=== PATIENT | female | born 1995 | race Caucasian/White ===

== ENCOUNTER 2016-09-10 13:50 | Outpatient (RCR) | payer BC | END 2016-09-13 11:18 | disposition home or self-care (01) | PROVIDERS: ATTEND Family Medicine | DX: R51 Headache (principal); M54.2 Cervicalgia ==

== ENCOUNTER 2018-11-29 14:23 | Emergency (ER) | payer BC ==
[~2018-11-29] VITALS: Ht 170.2 cm; Wt 95.3 kg
--- OUTSIDE RECORDS SUMMARY | 2018-11-29 14:26 | XMS REPORT ---
Author Author Jessica Franklin Organization [employer] Address Unknown Phone Unavailable Care Team Providers Care Director Global Sales Name Role Phone Jessica Franklin CP Unavailable Allergies, Adverse Reactions, Alerts Substance Reaction Event Type N.K.D.A. 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 Problem Near syncope R55 Active Problem Dysmenorrhea, unspecified N94.6 Active Problem Cough R05 Active Problem Encounter for immunization Z23 Active Problem Encounter for routine child health examination without abnormal findings Z00.129 Active Medications Medication Code System Code Instructions Start Date End Date Status Dosage Loratadine NDC ____ not defined Flonase NDC ____ as directed Procedures Procedure Coding System Code Date DESTRUCT LESION, 14 CPT-4 40170 February 09, 2016 Office Visit, Est Pt., Level 4 CPT-4 04059 February 09, 2016 Vital Signs Date/Time: February 09, 2016 Blood Pressure Systolic 100 mm Hg Ht Percentile 85.70 % Cardiac Monitoring Heart Rate 77 /min Temperature 97.5 F BMI 22.80 Index Weight 145.6 lbs Height 5 ft 7 in in Blood Pressure Diastolic 80 mm Hg Wt Percentile 77.03 % Oximetry 98 % Results No Known Results Summary Purpose eClinicalWorks Submission
--- OUTSIDE RECORDS SUMMARY | 2018-11-29 14:26 | XMS REPORT ---
Author Author Jessica Franklin Organization [employer] Address Unknown Phone Unavailable Care Team Providers Care Risk Management Professional Name Role Phone Jessica Franklin CP Unavailable Allergies, Adverse Reactions, Alerts Substance Reaction Event Type N.K.D.A. 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 Problem Encounter for immunization Z23 Active Problem Concussion S06.0X9A Active Problem Cough R05 Active Assessment Concussion S06.0X9A Active Problem Encounter for routine child health examination without abnormal findings Z00.129 Active Problem Dysmenorrhea, unspecified N94.6 Active Medications Medication Code System Code Instructions Start Date End Date Status Dosage Loratadine [facility] [address]-74 not defined Minastrin 24 Fe [facility] 58035636003 0 orally daily as directed Procedures Procedure Coding System Code Date Office Visit, Est Pt., Level 4 CPT-4 53743 May 20, 2015 Vital Signs Date/Time: May 20, 2015 Blood Pressure Systolic 100 mm Hg Cardiac Monitoring Heart Rate 97 /min Temperature 98.2 F BMI 22.05 Index Weight 140.8 lbs Height 67 in Blood Pressure Diastolic 74 mm Hg Wt Percentile 74.31 % Oximetry 98 % Results No Known Results Summary Purpose eClinicalWorks Submission
--- OUTSIDE RECORDS SUMMARY | 2018-11-29 14:26 | XMS REPORT ---
Author Author Jessica Franklin Organization [employer] Address Unknown Phone Unavailable Care Team Providers Care Child Care Attendant Name Role Phone Jessica Franklin CP Unavailable Allergies, Adverse Reactions, Alerts Substance Reaction Event Type N.K.D.A. 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 Problem Encounter for immunization Z23 Active Problem Concussion S06.0X9A Active Problem Cough R05 Active Assessment Irregular menstrual cycle N92.6 Active Problem Encounter for routine child health examination without abnormal findings Z00.129 Active Problem Dysmenorrhea, unspecified N94.6 Active Medications Medication Code System Code Instructions Start Date End Date Status Dosage Loratadine [facility] [address]-17 not defined Minastrin 24 Fe [facility] 72487408912 0 orally daily as directed Procedures Procedure Coding System Code Date Office Visit, Est Pt., Level 3 CPT-4 38720 Jun 09, 2015 Vital Signs Date/Time: Jun 09, 2015 Blood Pressure Systolic 110 mm Hg Cardiac Monitoring Heart Rate 81 /min Temperature 97.6 F BMI 22.74 Index Weight 145.2 lbs Height 67 in Blood Pressure Diastolic 74 mm Hg Wt Percentile 78.66 % Oximetry 97 % Results No Known Results Summary Purpose eClinicalWorks Submission
--- OUTSIDE RECORDS SUMMARY | 2018-11-29 14:26 | XMS REPORT ---
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
--- OUTSIDE RECORDS SUMMARY | 2018-11-29 14:26 | XMS REPORT ---
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
--- OUTSIDE RECORDS SUMMARY | 2018-11-29 14:26 | XMS REPORT ---
Author Author Jessica Franklin [facility] [employer] Address Unknown Phone Unavailable Care Team Providers Care Blade Boner Name Role Phone Jessica Franklin CP Unavailable [...]
--- OUTSIDE RECORDS SUMMARY | 2018-11-29 14:27 | XMS REPORT | Continuity of Care Document ---
Author Organization Unknown Address Unknown Allergies Active Description Code Type Severity Reaction Onset Reported/Identified Relationship to Patient Clinical Status Yes No Known Allergies No Known Allergies Drug Allergy Unknown N/A 2014 Medications There is no data. 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, right eye Procedures [place] [address] BREAST LIMITED BOBBY RODRIGEZ 07/19/2016 74564 EYE EXAM, NEW PATIENT 10/18/2016 Results Radiology Report from [facility] on 05/28/2015 09:34:00 DIAGNOSTIC IMAGING REPORT [facility] - [address] [place], [place] [address] PHONE #: [phone] FAX #: [phone] ------- Name: [facility] No: : 1995 Age: 19 Sex: F Status: REG CLI Unit No: [id number] Phys: Josette Hunt Acct: [id number] Reason For Exam: CONCUSSION ACKERMAN Exam Date: 05/28/2015 EXAMS: CPT CODE: [id number] CT HEAD W/O CONTRAST 71943 REASON FOR EXAM: CONCUSSION ACKERMAN, symptoms starting . Headache daily since initial injury. Patient indicated Pain predominantly along the left parietal and left temporal area. TIME OF EXAM: 05/28/2015 9:14 AM COMPARISON: None TECHNIQUE: Routine noncontrast-enhanced helical CT images of the head were obtained. Postprocessed coronal and sagittal reformats were obtained and reviewed. FINDINGS: The ventricles and cortical sulci are age-appropriate in appearance. The roberts-white matter differentiation is preserved without CT evidence of acute territorial ischemia. There is no midline shift or mass- effect. There are no abnormal areas of increased density to suggest acute intracranial hemorrhage. No extra-axial masses or fluid collections are present. The bony calvarium is intact. The included portions of the paranasal sinuses are clear. IMPRESSION: No acute intracranial hemorrhage. No CT evidence of acute territorial ischemia or focal mass. I have personally reviewed these images and corrected the resident physician's interpretation if necessary. at 0917 RESIDENT: RITO MICHAEL MD Reported and signed by: MARLEEN BUSH MD PAGE 1 Signed Report ( CONTINUED) DIAGNOSTIC IMAGING REPORT [facility] - [address] [place] [address] PHONE #: [phone] FAX #: [phone] Name: KATIELAURO NINA Loc: [facility] Radiology No: : 10/1995 Age: 19 Sex: F Status: REG CLI Unit No: [id number] Phys: Josette Hunt Acct: [id number] Reason For Exam: CONCUSSION ACKERMAN Exam Date: 05/28/2015 EXAMS: CPT CODE: [id number] CT HEAD W/O CONTRAST 23766 <Continued> CC: Josette Franklin MD Technologist: SHILPI WINTERS Transcribed Date/Time: 2014 (0929)Sculpture Instructor: SIDNEY Printed Date/ Time: 05/28/2015 (0934) BATCH NO: N/A PAGE 2 Signed Report Encounters ACCT No. Visit Date/Time Discharge Status Pt. Type Provider Facility Loc./Unit Complaint [id number] 05/28/2015 08:49:00 05/28/2015 08:49:00 DIS Outpatient Josette Franklin MD [facility]ETA [id number] 09/27/2014 08:11:00 Document Registration [id number] 10/18/2016 14:00:00 Document Registration [id number] 07/23/2016 00:00:00 DIS Document Registration [id number] 09/10/2016 13:50:00 09/13/2016 11:18:00 DIS Outpatient JOSETTE FRANKLIN MD [facility] REHAB FREQUENT HEADACHES ; NECK PAIN
--- OUTSIDE RECORDS SUMMARY | 2018-11-29 14:27 | XMS REPORT ---
Author Author Jessica Franklin [facility] Address [address], [place] [address] Care Team Providers Care Hide Paster Name Role Phone Jessica Franklin Unavailable PROBLEMS Type Condition ICD9-CM Code HFX10-IU Code Onset Dates Condition Status SNOMED Code Problem Cough R05 Active 51963699 Problem Encounter for routine child health examination without abnormal findings Z00.129 Active 700231436 Problem Dysmenorrhea, unspecified N94.6 Active 380892093 Problem Chronic tension-type headache, intractable G44.221 Active 886276167 Problem Migraine without aura and without status migrainosus, not intractable G43.009 Active 101648309 Problem 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 10/17/14- slight hepatomegaly Medical History HIDA scan 10/24/14 Medical History Asthma Surgical History Endoscopy, colonoscopy- [facility] 11/29/14
--- OUTSIDE RECORDS SUMMARY | 2018-11-29 14:27 | XMS REPORT ---
Author Author Jessica Franklin [facility] Address [address] [place], [place] [address] Care Team Providers Care Compliance Paralegal Name Role Phone Jessica Franklin Unavailable PROBLEMS Type Condition ICD9-CM Code [id number] Code Onset Dates Condition Status SNOMED Code Problem Cough R05 Active 46031539 Problem Near syncope R55 Active 732109096 Problem Concussion S06.0X9A Active 971063774 Problem Encounter for routine child health examination without abnormal findings Z00.129 Active 018844786 Problem Dysmenorrhea, unspecified N94.6 Active 230265194 Problem 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
--- OUTSIDE RECORDS SUMMARY | 2018-11-29 14:27 | XMS REPORT ---
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
--- OUTSIDE RECORDS SUMMARY | 2018-11-29 14:27 | XMS REPORT ---
Author Author Jessica Franklin 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
--- OUTSIDE RECORDS SUMMARY | 2018-11-29 14:27 | XMS REPORT ---
Author Author ROSALBA MARTE Organization [facility] Address [address] [place] [address] Care Team Providers Care Returned Case Inspector Name Role Phone TOLU MARTEICE Unavailable PROBLEMS Type Condition ICD9-CM Code WGE73-YA Code Onset Dates Condition Status SNOMED Code Problem Seasonal allergic rhinitis, unspecified allergic rhinitis trigger J30.2 Active 541640216 ALLERGIES No Known Allergies SOCIAL HISTORY Never Assessed PLAN OF CARE Activity Details Follow Up prn Reason: VITAL SIGNS Height 67 in 2016-09-23 Weight 191.0 lbs 2016-09-23 Temperature 99.0 degrees Fahrenheit 2016-09-23 Heart Rate 80 bpm 2016-09-23 Respiratory Rate 18 2016-09-23 BMI 29.91 kg/m2 2016-09-23 Blood pressure systolic 114 mmHg 2016-09-23 Blood pressure diastolic 78 mmHg 2016-09-23 MEDICATIONS Medication Instructions Dosage Frequency Start Date End Date Duration Status Minastrin 24 Fe 1-20 MG-MCG(24) Orally Once a day 1 tablet 24h Active RESULTS No Results PROCEDURES No Known procedures IMMUNIZATIONS No Known Immunizations MEDICAL (GENERAL) HISTORY Type Description Date Medical History irritable bowel syndrome Surgical History wisdom teeth extraction
--- OUTSIDE RECORDS SUMMARY | 2018-11-29 14:27 | XMS REPORT ---
Author Author Jessica Franklin [facility] eClinicalWorks Address Unknown Phone Unavailable Care Team Providers Care Site Promotion Agent Name Role Phone Jessica Franklin Unavailable Allergies No Known Allergies Problems No Known Problems Medications No Known Medications Results No Known Results Summary Purpose eClinicalWorks Submission
--- OUTSIDE RECORDS SUMMARY | 2018-11-29 14:27 | XMS REPORT ---
Author Author João Virgen [facility] Address [address] [place] [address] Care Team Providers Care Company Dancer Name Role Phone João Virgen Unavailable PROBLEMS Type Condition ICD9-CM Code JEN39-DW Code Onset Dates Condition Status SNOMED Code Problem Cough R05 Active 85244875 Problem Encounter for routine child health examination without abnormal findings Z00.129 Active 667318124 Problem Dysmenorrhea, unspecified N94.6 Active 526614932 Problem Chronic tension-type headache, intractable G44.221 Active 773819097 Problem Migraine without aura and without status migrainosus, not intractable G43.009 Active 298488405 Problem 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 60183180 Problem Encounter for immunization Z23 Active 998392330 Problem Near syncope R55 Active 364349085 Problem Concussion S06.0X9A Active 375154036 ALLERGIES No Known Allergies SOCIAL HISTORY Never Assessed PLAN OF CARE Activity Details Follow Up prn Reason: VITAL SIGNS Temperature 98.5 degrees Fahrenheit 2017-07-29 Heart Rate 98 /min 2017-07-29 Height 5 ft 7 in in 2017-07-29 Weight 195.0 lbs 2017-07-29 BMI 30.54 kg/m2 2017-07-29 Oximetry 97 % 2017-07-29 Blood pressure systolic 120 mm Hg 2017-07-29 Blood pressure diastolic 72 mm Hg 2017-07-29 MEDICATIONS Medication Instructions Dosage Frequency Start Date End Date Duration Status Allergy 10 MG Orally Once a day 1 tablet on the tongue and allow to dissolve 24h 30 day(s) Active Amoxicillin 400 MG/5ML Orally every 12 hrs 2 tsp 12h Jan, 10 days Active Tizanidine HCl 2 MG Orally Three times a day 1-2 capsules as needed 8h Active Nortriptyline HCl 10 MG Orally Once a day 1 capsule at night. may increase by 10 mg increments each week to max of 30 mg 24h 20 Sep, 2016 30 day(s) Active Flonase Allergy Relief 50 MCG/ACT Nasally Once a day 1 spray in each nostril 24h 30 day(s) Active Minastrin 24 Fe 1-20 MG-MCG(24) TAKE ONE BY MOUTH ONCE DAILY 28 Active RESULTS No Results PROCEDURES Procedure Date Ordered Result Body Site FLU IMM NO ORD/ADMIN DOC SIENNA Jul 29, 2017 IMMUNIZATIONS No Known Immunizations MEDICAL (GENERAL) HISTORY Type Description Date Medical History Constipation Medical History IBS 09/2014 Medical History KUB 09/17/14 Medical History US of Abd. 10/17/14- slight hepatomegaly Medical History HIDA scan 10/24/14 Medical History Asthma Surgical History Endoscopy, colonoscopy- [facility] 11/29/14
--- OUTSIDE RECORDS SUMMARY | 2018-11-29 14:27 | XMS REPORT ---
Author Author Jessica Franklin [facility] Address [address], [place] [address] Care Team Providers Care Grinder Set Up Operator Thread Tool Name Role Phone Jessica Franklin Unavailable PROBLEMS Type Condition ICD9-CM Code PWS83-TD Code Onset Dates Condition Status SNOMED Code Problem Cough R05 Active 92231850 Problem Near syncope R55 Active 516162700 Problem Concussion S06.0X9A Active 460318384 Problem Encounter for routine child health examination without abnormal findings Z00.129 Active 112511600 Problem Dysmenorrhea, unspecified N94.6 Active 299968294 Problem 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
--- OUTSIDE RECORDS SUMMARY | 2018-11-29 14:27 | XMS REPORT ---
Author Author Janki Hopson [facility] Address [address] [place] [address] Care Team Providers Care Corporate Librarian Name Role Phone Janki Hopson Unavailable PROBLEMS Type Condition ICD9-CM Code VVS87-MB Code Onset Dates Condition Status SNOMED Code Problem Cough R05 Active 82038720 Problem Encounter for routine child health examination without abnormal findings Z00.129 Active 192770159 Problem Dysmenorrhea, unspecified N94.6 Active 453259532 Assessment Chronic tension-type headache, intractable G44.221 Sep, Active 515481419 Problem Chronic tension-type headache, intractable G44.221 Active 453545531 Problem Migraine without aura and without status migrainosus, not intractable G43.009 Active 480485257 Problem 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 Unknown Non Drug Allergy Sep, Unknown SOCIAL HISTORY No smoking Hx information available PLAN OF CARE VITAL SIGNS Temperature 99.6 degrees Fahrenheit 2016-10-18 Heart Rate 83 /min 2016-10-18 Height 5 ft 7 in in 2016-10-18 Weight 190.6 lbs 2016-10-18 BMI 29.85 kg/m2 2016-10-18 Oximetry 98 % 2016-10-18 Blood pressure systolic 100 mm Hg 2016-10-18 Blood pressure diastolic 70 mm Hg 2016-10-18 MEDICATIONS Medication Instructions Dosage Frequency Start Date End Date Duration Status Allergy 10 MG Orally Once a day 1 tablet on the tongue and allow to dissolve 24h 30 day(s) Active Tizanidine HCl 2 MG Orally Three times a day 1-2 capsules as needed 8h Active Nortriptyline HCl 10 MG Orally Once a day 1 capsule at night. may increase by 10 mg increments each week to max of 30 mg 24h Sep, 30 day(s) Active Minastrin 24 Fe 1-20 MG-MCG(24) TAKE ONE BY MOUTH ONCE DAILY 28 Active Flonase Allergy Relief 50 MCG/ACT Nasally Once a day 1 spray in each nostril 24h 30 day(s) Active RESULTS No Results PROCEDURES Procedure Date Ordered Related Diagnosis Body Site Office Visit, Est Pt., Level 4 October 18, 2016 IMMUNIZATIONS No Known Immunizations
--- OUTSIDE RECORDS SUMMARY | 2018-11-29 14:27 | XMS REPORT ---
Author Author Jessica Franklin Organization e[employer] Address Unknown Phone Unavailable Care Team Providers Care Knitter Machine Name Role Phone Jessica Franklin CP Unavailable Allergies, Adverse Reactions, Alerts Substance Reaction Event Type N.K.D.A. 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 Assessment Allergic rhinitis, seasonal J30.2 Active Assessment Shortness of breath R06.02 Active Problem Dysmenorrhea, unspecified N94.6 Active Problem Cough R05 Active Medications Medication Code System Code Instructions Start Date End Date Status Dosage Loratadine [facility] [address]-31 not defined Minastrin 24 Fe [facility] 38751608420 0 orally daily as directed Procedures Procedure Coding System Code Date Office Visit, Est Pt., Level 3 CPT-4 16595 May 06, 2015 Vital Signs Date/Time: May 06, 2015 Blood Pressure Systolic 120 mm Hg Cardiac Monitoring Heart Rate 89 /min Temperature 98.3 F BMI 22.39 Index Weight 143 lbs Height 67 in Blood Pressure Diastolic 80 mm Hg Wt Percentile 76.71 % Oximetry 99 % Results No Known Results Summary Purpose eClinicalWorks Submission
--- OUTSIDE RECORDS SUMMARY | 2018-11-29 14:27 | XMS REPORT ---
Author Author JEREMI CHRISTENSEN Organization [facility] Address [address] [place] [address] Care Team Providers Care Retail Client Solutions Consultant Name Role Phone JEREMI CHRISTENSEN Unavailable PROBLEMS Type Condition ICD9-CM Code [id number] Code Onset Dates Condition Status SNOMED Code Problem Seasonal allergic rhinitis, unspecified allergic rhinitis trigger J30.2 Active 314295544 ALLERGIES Substance Reaction Event Type Date Status N.K.D.A. Unknown Non Drug Allergy Apr, Unknown SOCIAL HISTORY No smoking Hx information available PLAN OF CARE Activity Details Follow Up prn Reason: VITAL SIGNS Height 67 in 2016-04-22 Weight 163 lbs 2016-04-22 Temperature 97.7 degrees Fahrenheit 2016-04-22 Heart Rate 76 bpm 2016-04-22 Respiratory Rate 16 2016-04-22 BMI 25.53 kg/m2 2016-04-22 Blood pressure systolic 116 mmHg 2016-04-22 Blood pressure diastolic 72 mmHg 2016-04-22 MEDICATIONS Medication Instructions Dosage Frequency Start Date End Date Duration Status Minastrin 24 Fe 1-20 MG-MCG(24) Orally Once a day 1 tablet 24h Active RESULTS No Results PROCEDURES Procedure Date Ordered Related Diagnosis Body Site Office Visit, Est Pt., Level 3 Apr 22, 2016 IMMUNIZATIONS No Known Immunizations
--- OUTSIDE RECORDS SUMMARY | 2018-11-29 14:27 | XMS REPORT ---
Author Author Dipti Lares [facility] Address [address] [place] [address] Care Team Providers Care Chief Deputy Coroner Name Role Phone Dipti Lares Unavailable PROBLEMS Type Condition ICD9-CM Code IHM83-NB Code Onset Dates Condition Status SNOMED Code Problem Cough R05 Active 35287329 Problem Encounter for routine child health examination without abnormal findings Z00.129 Active 079668082 Problem Dysmenorrhea, unspecified N94.6 Active 274868068 Problem Chronic tension-type headache, intractable G44.221 Active 546498806 Problem Migraine without aura and without status migrainosus, not intractable G43.009 Active 464585504 Problem 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 Unknown Non Drug Allergy Jan, Unknown SOCIAL HISTORY No smoking Hx information available PLAN OF CARE Activity Details Follow Up prn Reason: VITAL SIGNS Temperature 97.8 degrees Fahrenheit 2017-02-03 Heart Rate 114 /min 2017-02-03 Height 5 ft 7 in in 2017-02-03 Weight 197. lbs 2017-02-03 BMI 30.85 kg/m2 2017-02-03 Blood pressure systolic 110 mm Hg 2017-02-03 Blood pressure diastolic 80 mm Hg 2017-02-03 MEDICATIONS Medication Instructions Dosage Frequency Start Date End Date Duration Status Amoxicillin 400 MG/5ML Orally every 12 hrs 2 tsp 12h Jan, Jan, 10 days Active Allergy 10 MG Orally Once a day 1 tablet on the tongue and allow to dissolve 24h 30 day(s) Active Flonase Allergy Relief 50 MCG/ACT Nasally Once a day 1 spray in each nostril 24h 30 day(s) Active Minastrin 24 Fe 1-20 MG-MCG(24) TAKE ONE BY MOUTH ONCE DAILY 28 Active Nortriptyline HCl 10 MG Orally Once a day 1 capsule at night. may increase by 10 mg increments each week to max of 30 mg 24h Sep, 30 day(s) Active Tizanidine HCl 2 MG Orally Three times a day 1-2 capsules as needed 8h Active RESULTS No Results PROCEDURES Procedure Date Ordered Related Diagnosis Body Site Office Visit, Est Pt., Level 3 February 03, 2017 IMMUNIZATIONS No Known Immunizations
--- OUTSIDE RECORDS SUMMARY | 2018-11-29 14:27 | XMS REPORT ---
Author Author Jessica Franklin [facility] Address [address] [place], [place] [id number] Care Team Providers Care [employer] Consultant Name Role Phone Jessica Franklin Unavailable PROBLEMS Type Condition ICD9-CM Code GIL31-OD Code Onset Dates Condition Status SNOMED Code Assessment Breast pain, right N64.4 Jul, Active 66377550 Problem Cough R05 Active 16718963 Assessment Frequent headaches R51 Jul, Active 560680681 Assessment Choking sensation R09.89 Jul, Active 178518682 Problem Near syncope R55 Active 410908566 Problem Concussion S06.0X9A Active 965835541 Problem Encounter for routine child health examination without abnormal findings Z00.129 Active 718653582 Problem Dysmenorrhea, unspecified N94.6 Active 726153766 Problem 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 Unknown Non Drug Allergy Jul, Unknown SOCIAL HISTORY No smoking Hx information available PLAN OF CARE Activity Details Pending Test Ultrasound : Breast, right prn,Reason: VITAL SIGNS Temperature 97.9 degrees Fahrenheit 2016-07-14 Heart Rate 96 /min 2016-07-14 Height 5 ft 7 in in 2016-07-14 Weight 185.2 lbs 2016-07-14 BMI 29.00 kg/m2 2016-07-14 Oximetry 99 % 2016-07-14 Blood pressure systolic 110 mm Hg 2016-07-14 Blood pressure diastolic 80 mm Hg 2016-07-14 MEDICATIONS Medication Instructions Dosage Frequency Start Date End Date Duration Status Minastrin 24 Fe 1-20 MG-MCG(24) TAKE ONE BY MOUTH ONCE DAILY 28 Active RESULTS No Results PROCEDURES Procedure Date Ordered Related Diagnosis Body Site Office Visit, Est Pt., Level 4 Jul 14, 2016 IMMUNIZATIONS No Known Immunizations
[2018-11-29] MEDS ORDERED: FEXO-142 (14:50)
[2018-11-29 15:47] LABS: BILIRUBIN,URINE NEGATIVE (NEGATIVE); CLARITY,URINE CLEAR; COLOR,URINE YELLOW; GLUCOSE, URINE (UA) NEGATIVE (NEGATIVE); KETONES,URINE NEGATIVE (NEGATIVE); LEUKOCYTE ESTERASE ,URINE 1+ (NEGATIVE); NITRITE,URINE NEGATIVE (NEGATIVE); PH,URINE 6 (5-9); PROTEIN,URINE 2+ (NEGATIVE); UROBILINOGEN,URINE 1 MG/DL (NORMAL)
[2018-11-29 15:57] LABS: BACTERIA,URINE FEW /HPF; RBC,URINE TNTC /HPF
[2018-11-29 16:14] LABS: HEMOGLOBIN 12.6 G/DL (11.5-16.0); MEAN PLATELET VOLUME 10.5 FL (7.4-10.4); RED CELL DISTRIBUTION WIDTH 12.7 % (10.0-14.5); WHITE BLOOD COUNT 15.4 10^3/uL (4.3-11.0)
[2018-11-29 16:37] LABS: ALANINE AMINOTRANSFERASE 22 U/L (0-55); ALBUMIN 4.2 GM/DL (3.2-4.5); ALKALINE PHOSPHATASE 69 U/L (40-136); BILIRUBIN,DIRECT 0.1 MG/DL (0.0-0.3); BILIRUBIN,INDIRECT 0.1 MG/DL; BILIRUBIN,TOTAL 0.2 MG/DL (0.1-1.0); BUN/CREATININE RATIO 13; CALCIUM 9.3 MG/DL (8.5-10.1); CARBON DIOXIDE 19 MMOL/L (21-32); CHLORIDE 110 MMOL/L (98-107); CREATININE SERUM 0.79 MG/DL (0.60-1.30); GFR ESTIMATED > 60; GLUCOSE 108 MG/DL (70-105); POTASSIUM 3.6 MMOL/L (3.6-5.0); SODIUM 140 MMOL/L (135-145); TOTAL PROTEIN 7.4 GM/DL (6.4-8.2)
[2018-11-29] MEDS ORDERED: IOHEXOL 350 MG/ML 100 ML (OMNIPAQUE 350) VIAL IV ONE (17:00)
[2018-11-29] MEDS ORDERED: HOLD METFORMIN - RECEIVED CONTRAST 20 ML VIAL IV SCH (17:00)
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
[2018-11-29 18:53] VITALS: BP 116/80
== END 2018-11-29 18:53 | disposition home or self-care (01) ==
LOC: EDUNIT# 14:23 → ER 14:24
DX: S80.01XA Contusion of right knee, initial encounter (principal); S80.02XA Contusion of left knee, initial encounter; S20.212A Contusion of left front wall of thorax, initial encounter; R51 Headache; V49.40XA Driver injured in collision with unspecified motor vehicles in traffic accident, initial encounter
CPT/HCPCS: 36415; 70450; 71260; 72125; 74177; 80048; 80076; 80320; 81000; 84703; 85027; 93041